=== PATIENT | male | born 1935 | race Caucasian/White ===

== ENCOUNTER → 2016-11-12 19:32 | Outpatient (CLI) | payer OTHER ==
[2016-08-16 07:53] VITALS: BMI 39.7
[~2016-11-12 19:32] MED LIST: BAYER CHEWABLE81 MG PO; BUMEX 1 MG TAB1 MG PO; BUMEX2 MG PO; CALCIUM; CRESTOR20 MG PO; FIBER GUMMIES; GLUCOPHAGE500 MG PO; HYDROCODONE-APA1 TAB PO; IMDUR30 MG PO; KLOR-CON 1010 MEQ PO; LIPITOR40 MG PO; MULTIPLE VITAMI1 TA1 PO; MYSOLINE 50 MG50 MG PO; NEURONTIN600 MG PO; NEXIUM40 MG PO; NITROMIST8.5 GM SL; NORVASC5 MG PO; PHENERGAN25 M1 PO; RANEXA500 MG PO; RELAFEN750 MG PO; SYNTHROID50 MCG PO; ZOLOFT100 MG
== END | disposition home or self-care (01) ==
LOC: D.SLEEP 19:32
DX: G47.33 Obstructive sleep apnea (adult) (pediatric) (principal)

== ENCOUNTER 2017-09-05 07:56 | Day surgery (SDC) | payer MEDICARE, BC, OTHER ==
[~2017-09-05] VITALS: Ht 180.3 cm; Wt 127.0 kg
--- NOTE | ~2017-09-05 | HP ---
PATIENT: AUBREY HAZEL MEDICAL RECORD: [id number] ACCOUNT: [id number] LOCATION:[facility] : 39 ADMISSION DATE: 09/05/17 HISTORY AND PHYSICAL EXAMINATION CHIEF COMPLAINT: Complex colon polyps. HISTORY: The patient has had a history of complex colon polyps. The patient's most worrisome one was within the cecum. It was a large carpeting polyp measuring 3 to 4 cm in size. The biopsies of cecal polyp back in August 2016 revealed an adenomatous polyp as well as a tubular adenoma. I am going to plan for colonoscopy with polypectomy utilizing the argon plasma supervisory cbp officer. The risks, possible complications, and alternatives to the procedure were explained to the patient. He elects to proceed. ALLERGIES: NIACIN. HOME MEDICINES: Please see the anesthesia list. CURRENT MEDICATIONS: Include aspirin, Lipitor, Bumex, Flexeril, Neurontin, metformin, Relafen, nitroglycerin as well as Zoloft. SOCIAL HISTORY: He is an ex-smoker. PAST MEDICAL AND SURGICAL HISTORY: History of myocardial infarction; history of coronary stents times 2; history of coronary artery disease; hypertension; sleep apnea, on CPAP; noninsulin-dependent diabetes mellitus; hypothyroidism, on replacement therapy; osteoarthritis; obesity; gastroesophageal reflux; and hiatal hernia surgery. PHYSICAL EXAMINATION: GENERAL: The patient does not appear acutely ill. He does not appear chronically ill. VITAL SIGNS: Reviewed. EARS: External ears appear normal. He is somewhat hard of hearing. EYES: Extraocular movements are intact. NECK: Trachea is midline. CHEST: No intercostal retractions. PULMONARY: Nonlabored. No stridor. ABDOMEN: Nontender. IMPRESSION: History of complex colon polyps. PLAN: Colonoscopy with polypectomy utilizing the argon plasma supervisory cbp officer. TRANSINT:[id number] Voice Confirmation ID: [id number] DOCUMENT ID: [id number] HISTORY AND PHYSICAL [id number] YASEMINJENISE KATZ MD at 0938 CC: AMY SNIDER MD, VENITA SEVERINO MD and SHELLEY PATEL [id number] DICTATION DATE: 09/05/17 1325 LEAD IOS DEVELOPER: 09/05/17 1347 [facility] [place] 09/05/17 [place] [address]
--- NOTE | ~2017-09-05 | OP ---
PATIENT NAME: AUBREY HAZEL MEDICAL RECORD: [id number] :37 LOCATION:D.OPS ADMISSION DATE: SURGEON: JENISE COUGHLIN MD DATE OF OPERATION: 09/05/2017 PREOPERATIVE DIAGNOSIS: History of complex colon polyps of the cecum. POSTOPERATIVE DIAGNOSES: 1. History of complex colon polyps of the cecum with inadequate prep. 2. Moderate left-sided diverticulosis. 3. A 5-mm sessile polyps ranging from 5 mm to 1.4 cm in greatest dimension. PROCEDURES: 1. Total colonoscopy to cecum. 2. Hot biopsy forceps polypectomies times 5. SURGEON: Jenise Coughlin MD BLUEPRINT BLOCKER: None. BLOOD LOSS: Minimal. ANESTHESIA: General. COMPLICATIONS: None. The risks, possible complications, and alternatives to the procedure were explained to the patient. He elects to proceed. The procedure was performed in the operating room as I felt that the patient was going to require treatment of these polyps with the argon plasma co founder and cto. I noted no regrowth of any polypoid tissue within the cecum; however, there was a poor colonic prep. There was a lot of solid fecal material as well as vegetable material and this was primarily in the cecum and the ascending colon and I could not wash all of it away. The patient was conveyed to the operating room electively on 09/05/2017. General anesthesia was induced by the anesthesia staff. The patient was placed in the Lisa position. A digital rectal examination was performed. A colonoscope was inserted through the anus. It was easily advanced to the cecum. Upon withdrawal, I irrigated and aspirated extensively. I dragged the folds. The pullback was greater than an 18-minute pullback. Five hot biopsy forceps polypectomies were performed. A retroflexed view was obtained in the rectum. I then unretroflexed the scope and removed it under direct vision. I will see the patient in my office in 2-3 weeks. I plan to return his surveillance lower endoscopic care back over to Dr. Meier at that time. TRANSINT:[id number] Voice Confirmation ID: [id number] DOCUMENT ID: [id number] OPERATIVE REPORT [id number] AUBREY HAZEL JENISE COUGHLIN MD at 0938 CC: AMY MEIER MD, VENITA SEVERINO MD and SHELLEY PATEL [id number] DICTATION DATE: 09/05/17 1421 CONVEYOR MONITOR: 09/05/17 1454 [facility] [place] 09/05/17 [place] [id number] [place] [id number]
[2017-09-05] MEDS ORDERED: CYCLOBENZAPRINE10 MG PO (08:33)
[2017-09-05] MEDS ORDERED: RELAFEN500 MG PO (08:35)
[2017-09-05 08:44] VITALS: BP 125/63; Ht 180.3 cm; Wt 127.0 kg
[2017-09-05 09:56] LABS: BASOPHILS 0.1 % (0-2); EOSINOPHILS 1.8 % (0-7); HEMATOCRIT 36.3 % (42.0-54.0); HEMOGLOBIN 11.9 g/dL (13.5-17.5); LYMPHOCYTES 19.7 % (15-50); MCH 29.8 pg (26.0-34.0); MCHC 32.8 g/dL (31.0-37.0); MEAN PLATELET VOLUME 10.4 fL (7.4-10.4); NEUTROPHILS 71.4 % (40-80); PLATELET COUNT 137 10x3/uL (130-400); RBC 3.99 10x6/uL (4.20-6.10); RDW 14.4 % (11.5-14.5); WBC 6.8 10x3/uL (4.8-10.8)
[2017-09-05 10:03] LABS: ANION GAP 13.5 mmol/L (8-16); CALCIUM 8.7 mg/dL (8.5-10.1); CARBON DIOXIDE 28.4 mmol/L (21.0-32.0); CREATININE - SERUM 1.4 mg/dL (0.6-1.3); POTASSIUM - SERUM 3.9 mmol/L (3.5-5.1)
== END 2017-09-05 15:00 | disposition home or self-care (01) ==
LOC: D.OPS 07:56 → D.PAN 09:30 → D.OPS 09:30 → D.PAN 11:20 → D.OPS 11:20 → D.PAN 11:30 → D.OPS 15:00
PROVIDERS: Anesthesiology
DX: K63.5 Polyp of colon (principal); K57.30 Diverticulosis of large intestine without perforation or abscess without bleeding; I25.10 Atherosclerotic heart disease of native coronary artery without angina pectoris; I10 Essential (primary) hypertension; E11.9 Type 2 diabetes mellitus without complications; E03.9 Hypothyroidism, unspecified; G47.30 Sleep apnea, unspecified; K21.9 Gastro-esophageal reflux disease without esophagitis; Z01.812 Encounter for preprocedural laboratory examination

== ENCOUNTER 2017-10-30 06:00 | Day surgery (SDC) | payer MEDICARE, BC, OTHER ==
--- NOTE | ~2017-10-30 | OP ---
PATIENT NAME: AUBREY HAZEL MEDICAL RECORD: [id number] :37 LOCATION:D.[facility] ADMISSION DATE: SURGEON: JENISE COUGHLIN MD DATE OF OPERATION: 10/30/2017 PREOPERATIVE DIAGNOSES: 1. Intractably symptomatic hemorrhoids. 2. Hematochezia. POSTOPERATIVE DIAGNOSES: 1. Intractably symptomatic hemorrhoids. 2. Hematochezia. PROCEDURE: Procedure for prolapse and hemorrhoids. SURGEON: Jenise Coughlin MD FRUIT CHECKER: None. BLOOD LOSS: Minimal. ANESTHESIA: General. COMPLICATIONS: None. I discussed the pathophysiology of hemorrhoids with the patient. We specifically discussed the risks, possible complications, alternatives to a procedure for prolapse and hemorrhoids. We discussed alternate methods of controlling hemorrhoidal issues including hemorrhoidectomy and internal hemorrhoidal banding. The patient elected to proceed with a procedure for prolapse and hemorrhoids. The discussion specifically included, but was not limited to, bleeding, requiring emergency reoperation; infection; anal stenosis; fecal incontinence; and recurrent hemorrhoidal symptoms. OPERATIVE COURSE: The patient was conveyed to the operating room electively on 10/30/2017. General anesthesia was induced by the anesthesia staff. The patient was placed in the lithotomy position. The buttocks were taped laterally. The anus and perianal areas were sterilely prepped and draped. The anus was dilated laterally to 3 fingers. A PPH retractor was placed. The retractor was sutured to the surrounding anoderm with 2-0 silk sutures. A 2-0 Prolene mucosal pursestring suture was applied 1 cm cephalad to the clear retractor. The PPH stapling device was advanced with the anvil cephalad to the pursestring suture, which was then tightened and tied. The stapling device was engaged. It was held in place for 2 minutes. It was then fired. It was removed under direct vision. There was an entire donut of hemorrhoidal and lower rectal mucosal tissue within the stapling device. Bleeding along the anastomotic staple line was controlled with [id number] 3-0 Vicryls. A combination of Marcaine and a steroid preparation was used to infiltrate the perianal tissues. Gelfoam was applied within anus and lower rectum. A topical anesthetic cream was applied to the external hemorrhoids. The patient was then extubated and conveyed to postanesthesia care unit. TRANSINT:[id number] Voice Confirmation ID: [id number] DOCUMENT ID: [id number] OPERATIVE REPORT [id number] AUBREY HAZEL ROBERT MD at 1019 CC: VENITA SEVERINO and SHELLEY PATEL MD [id number] DICTATION DATE: 10/30/17 0937 WIRE BORDER ASSEMBLER: 10/30/17 1318 [facility] [place] 10/30/17 [place] [id number]
[~2017-10-30 06:00] MED LIST changes: +CYCLOBENZAPRINE10 MG PO; +RELAFEN500 MG PO
[2017-10-30 06:45] LABS: BASOPHILS 0.2 % (0-2); EOSINOPHILS 2.6 % (0-7); HEMATOCRIT 39.9 % (42.0-54.0); HEMOGLOBIN 13.2 g/dL (13.5-17.5); IMMATURE GRANULOCYTES 0.2 % (0-5); MCH 31.1 pg (26.0-34.0); MCHC 33.1 g/dL (31.0-37.0); MCV 94.1 fL (80.0-100.0); MEAN PLATELET VOLUME 9.8 fL (7.4-10.4); MONOCYTES 8.5 % (2-11); NEUTROPHILS 61.5 % (40-80); PLATELET COUNT 132 10x3/uL (130-400); RBC 4.24 10x6/uL (4.20-6.10); RDW 14.6 % (11.5-14.5); WBC 6.3 10x3/uL (4.8-10.8)
[2017-10-30 07:07] LABS: CALCIUM 8.7 mg/dL (8.5-10.1); CARBON DIOXIDE 27.8 mmol/L (21.0-32.0); CREATININE - SERUM 1.5 mg/dL (0.6-1.3); POTASSIUM - SERUM 3.8 mmol/L (3.5-5.1)
[2017-10-30] MEDS ORDERED: LEVO-T50 MCG PO (07:25)
[2017-10-30] MEDS ORDERED: TOPAMAX25 MG PO (07:26)
[2017-10-30 07:33] VITALS: BP 132/65; BMI 37.7
== END 2017-10-30 11:35 | disposition home or self-care (01) ==
LOC: D.OPS 06:00 → D.PAN 07:30 → D.OPS 07:30 → D.PAN 08:00 → D.OPS 11:35
PROVIDERS: Anesthesiology
DX: K64.8 Other hemorrhoids (principal); K92.1 Melena; K64.4 Residual hemorrhoidal skin tags; Z01.812 Encounter for preprocedural laboratory examination

== ENCOUNTER → 2017-11-22 12:56 | Outpatient (CLI) | payer MEDICARE, BC, OTHER ==
[2017-10-30 07:33] VITALS: BMI 37.7
[~2017-11-22 12:56] MED LIST changes: +LEVO-T50 MCG PO; +TOPAMAX25 MG PO
== END | disposition home or self-care (01) ==
LOC: D.MRI 12:56
DX: M48.03 Spinal stenosis, cervicothoracic region (principal)

== ENCOUNTER → 2017-11-26 07:36 | Outpatient (CLI) | payer MEDICARE, BC, OTHER ==
[2017-10-30 07:33] VITALS: BMI 37.7
== END | disposition home or self-care (01) ==
LOC: D.NM 07:36
DX: M48.07 Spinal stenosis, lumbosacral region (principal)

== ENCOUNTER → 2018-11-18 08:36 | Outpatient (CLI) | payer MEDICARE, BC, OTHER ==
--- NOTE | 2018-11-20 14:40 | EC ---
PATIENT:AUBREY HAZEL DATE OF SERVICE: 11/18/18 SEX: M MEDICAL RECORD: [id number] DATE OF : 39 [facility] AGE OF PATIENT: 83 ADMISSION DATE: 11/18/18 REFERRING PHYSICIAN: INTERPRETING PHYSICIAN: SHELLEY PATEL MD ECHOCARDIOGRAM REPORT ECHO CHARGES 4 ECHO COMPLETE Date: 11/18/18 CLINICAL DIAGNOSIS: CAD ECHOCARDIOGRAPHIC MEASUREMENTS (adult normal given) AC root (d.<3.7cm) 4.2 cm LV Septum d (<1.2 cm> 1.6 cm Valve Excursion 2.2 cm LV Septum (systole) 1.7 cm Left Atria (s.<4.0cm> 5.0 cm LVPW d(<1.2cm) 1.8 cm RV (d.<2.3cm) 3.7 cm LVPW (sytole) 2.0 cm LV diastole(<5.6CM) 6.2 cm MV E-F(>70mm/sec) cm LV systole 4.2 cm LVOT Diameter 2.1 cm MV exc.(>10mm) cm Est.ejection fraction (50-75%) % DOPPLER: LVIT cm/sec A 79.0 cm/sec E 70.0 cm/sec LA cm/sec RVSP 27 mmHg LVOT 98 cm/sec AOP1/2T m/s Asc. Ao 124 cm/sec RVOT 83 cm/sec RA cm/sec PA 105 cm/sec AV Gradient Peak 6.14 mmHg AV Mean 3.06 mmHg AV Area 3.0 cm MV Gradient Peak 2.95 mmHg MV Mean 0.98 mmHg MV Area cm COMMENTS: Cook House Supervisor: 2 SAMANTHA DOMINGUEZ Mineral Industry Teacher: 3 Dr. Sebastian TAPE# PACS Pericardial Effusion N DATE OF SERVICE: Adequate 2-D echo, color flow and spectral Doppler, and M-mode. LVH is present. LV internal dimension is normal. Wall motion is normal. EF is greater than or equal to 55%. Aortic valve sclerosis without stenosis by Doppler interrogation. Left atrium is dilated at 5.0 cm. Mitral valve is thickened with no prolapse. Trace MR. Right-sided chamber is grossly normal. Trace TR. ECHOCARDIOGRAM REPORT [id number] AUBREY HAZEL TRANSINT:[id number] Voice Confirmation ID: [id number] DOCUMENT ID: [id number] SHELLEY PATEL MD at 1440 CC: [id number] DICTATION DATE: 11/19/18 0859 BUNDLE CUTTER: 11/19/18 0909 DEP CLI 11/18/18 [facility] [address] [place] [address]
== END | disposition home or self-care (01) ==
LOC: D.HCCARDIO 08:36
PROVIDERS: ATTEND Internal Medicine Interventional Cardiology
DX: I25.10 Atherosclerotic heart disease of native coronary artery without angina pectoris (principal)

== ENCOUNTER 2020-02-24 09:31 | Day surgery (SDC) | payer MEDICARE, BC, OTHER ==
[~2020-02-24] VITALS: Ht 180.3 cm; Wt 132.7 kg
[2020-02-24 10:11] LABS: BASOPHILS 0.3 % (0-2); EOSINOPHILS 2.8 % (0-7); HEMATOCRIT 40.5 % (42.0-54.0); HEMOGLOBIN 13.1 g/dL (13.5-17.5); LYMPHOCYTES 24.4 % (15-50); MCH 30.5 pg (26.0-34.0); MCHC 32.3 g/dL (31.0-37.0); MCV 94.2 fL (80.0-100.0); MEAN PLATELET VOLUME 10.2 fL (7.4-10.4); MONOCYTES 7.5 % (2-11); PLATELET COUNT 136 10x3/uL (130-400); RDW 13.5 % (11.5-14.5); WBC 6.7 10x3/uL (4.8-10.8)
[2020-02-24 10:28] LABS: ANION GAP 9.4 mmol/L (8-16); CALCIUM 8.4 mg/dL (8.5-10.1); CARBON DIOXIDE 34.4 mmol/L (21.0-32.0); CREATININE - SERUM 1.6 mg/dL (0.6-1.3); POTASSIUM - SERUM 3.8 mmol/L (3.5-5.1)
[2020-02-24 10:45] VITALS: Ht 180.3 cm; Wt 132.7 kg
--- NOTE | 2020-02-24 13:55 | NUR ---
1354 PORTABLE CHEST XRAY TO RULE OUT FREE AIR COMPLETED. ABDOMEN SOFT & DISTENDED. BOWEL SOUNDS AUSCULTATED IN ALL 4 QUADRANTS. PT ENCOURAGED TO PASS FLATUS. PT NPO. Sammy HSU R.N.
--- NOTE | 2020-02-24 14:26 | NUR ---
1420 CHEST X-RAY REPORT SHOWS NO FREE AIR. PT SERVED WATER. Sammy HSU R.N.
--- NOTE | 2020-02-24 14:42 | NUR ---
1440 UP TO BATHROOM. AMBULATORY WITHOUT DIFFICULTY. VOIDED. BACK TO BED. IV DC'ED WITH CATH INTACT. DRESSING. Sammy HSU R.N.
--- NOTE | 2020-02-24 15:05 | NUR ---
1450 UP DRESSED. AWAKE & ALERT. DRANK & RETAINED APPLE JUICE. GIVEN DISCHARGE INFORMATION INCLUDING: MED REC, SHEET LISTING NSAIDS TO AVOID, RTC APPT., & POST ENDOSCOPIC PROCEDURES D/C INSTRUCTION SHEET OPS. PT VOICED UNDERSTANDING. TO PRIVATE CAR PER WHEELCHAIR. HOME WITH , PEARL. CoelhoAntione ZHOUER Amador
--- NOTE | 2020-02-24 18:29 | HP ---
PATIENT: AUBREY HAZEL MEDICAL RECORD: [id number] ACCOUNT: [id number] LOCATION:[facility] : 39 ADMISSION DATE: 02/24/20 PCP: VENITA SEVERINO MD HISTORY AND PHYSICAL EXAMINATION CHIEF COMPLAINT: History of complex colon polyps. HISTORY OF PRESENT ILLNESS: The patient has history of complex colon polyps. The most worrisome one was within the cecum. This has been a large carpeting polyp measuring 3-4 cm in size. Biopsies in the past have revealed an adenomatous polyp as well as a tubular adenoma. CURRENT MEDICATIONS: Please see the nursing list. SOCIAL HISTORY: He is an ex-smoker. PAST MEDICAL AND SURGICAL HISTORY: Myocardial infarction; coronary stents; coronary artery disease; hypertension; sleep apnea, on CPAP; noninsulin-dependent diabetes mellitus; hypothyroidism, on replacement therapy; osteoarthritis; obesity; gastroesophageal reflux and a hiatal hernia surgery. PHYSICAL EXAMINATION: GENERAL: The patient does not appear acutely ill. He does appear chronically ill. VITAL SIGNS: Reviewed. EARS: External ears appear normal. He is somewhat hard of hearing. EYES: Extraocular movements are intact. NECK: Trachea is midline. CHEST: No intercostal retractions. PULMONARY: Mildly labored. No stridor. IMPRESSION: History of complex colon polyps. PLAN: Colonoscopy with possible polypectomies. TRANSINT:[id number] Voice Confirmation ID: [id number] DOCUMENT ID: [id number] JENISE COUGHLIN MD at 1829 CC: VENITA SEVERINO [id number] DICTATION DATE: 02/24/20 1239 EDUCATION AND TRAINING MANAGER: 02/24/20 1558 [facility] 02/24/20 [facility] [address] [place] [address]
--- NOTE | 2020-02-25 12:27 | OP ---
PATIENT NAME: AUBREY HAZEL MEDICAL RECORD: [id number] :39 LOCATION:D.[facility] ADMISSION DATE: SURGEON: SANKET COUGHLIN MD DATE OF OPERATION: 02/24/2020 PREOPERATIVE DIAGNOSIS: History of complex colon polyps including a complex cecal polyp. POSTOPERATIVE DIAGNOSES: 1. History of complex colon polyps including a complex cecal polyp with 1 new cecal polyp, which was a 6 mm sessile polyp. 2. Inadequate prep essentially an unprepped colon. I can only exclude obstructing colonic masses. OPERATIVE PROCEDURES: 1. Total colonoscopy to cecum. 2. Hot biopsy forceps polypectomy times 1. SURGEON: Sanket Coughlin MD CULLET CRUSHER AND WASHER: None. BLOOD LOSS: Minimal. ANESTHESIA: IV sedation. COMPLICATIONS: None. ENDOSCOPIC COURSE: A consent form was signed. The patient was conveyed to the endoscopy suite electively on 02/24/2020. IV sedation was induced by the anesthesia staff. The patient was placed in the Lisa position. A digital rectal examination was performed. A colonoscope was inserted through the anus. It was advanced with difficulty to the cecum. I irrigated and aspirated extensively. One small polyp was noted and was removed utilizing the hot biopsy forceps polypectomy technique. I then slowly withdrew the endoscope. I irrigated and aspirated extensively. The prep was inadequate. The endoscope was then withdrawn under direct vision. Due to the inadequate prep, I am going to recommend a 2-day prep and that we perform another colonoscopy on this patient in 1 year. TRANSINT:[id number] Voice Confirmation ID: [id number] DOCUMENT ID: [id number] SANKET COUGHLIN MD at 1227 CC: VENITA SEVERINO [id number] DICTATION DATE: 02/24/20 1329 STONECUTTER HAND: 02/24/20 1941 [facility] 02/24/20 [place] [address]
== END 2020-02-24 14:55 | disposition home or self-care (01) ==
LOC: D.OPS 09:31
PROVIDERS: ATTEND Surgery
DX: Z86.010 Personal history of colon polyps (principal); K63.5 Polyp of colon; I25.2 Old myocardial infarction; I10 Essential (primary) hypertension; E11.9 Type 2 diabetes mellitus without complications; E03.9 Hypothyroidism, unspecified; K21.9 Gastro-esophageal reflux disease without esophagitis

== ENCOUNTER → 2020-04-06 05:27 | Day surgery (SDC) | payer MEDICARE, BC, OTHER ==
[2020-02-24 10:45] VITALS: BMI 40.8
[2020-04-06 06:19] LABS: BASOPHILS 0.2 % (0-2); HEMATOCRIT 38.4 % (42.0-54.0); HEMOGLOBIN 12.6 g/dL (13.5-17.5); IMMATURE GRANULOCYTES 0.2 % (0-5); LYMPHOCYTES 29.5 % (15-50); MCH 30.7 pg (26.0-34.0); MCHC 32.8 g/dL (31.0-37.0); MCV 93.7 fL (80.0-100.0); NEUTROPHILS 58.1 % (40-80); PLATELET COUNT 133 10x3/uL (130-400); RDW 13.7 % (11.5-14.5); WBC 6.7 10x3/uL (4.8-10.8)
[2020-04-06 06:35] LABS: ANION GAP 10.8 mmol/L (8-16); CALCIUM 8.6 mg/dL (8.5-10.1); CARBON DIOXIDE 29.4 mmol/L (21.0-32.0); CREATININE - SERUM 1.6 mg/dL (0.6-1.3); POTASSIUM - SERUM 3.2 mmol/L (3.5-5.1)
== END | disposition home or self-care (01) ==
LOC: D.OPS 05:27
PROVIDERS: Anesthesiology; ATTEND Surgery
DX: K21.9 Gastro-esophageal reflux disease without esophagitis (principal); Z53.9 Procedure and treatment not carried out, unspecified reason; I10 Essential (primary) hypertension; E66.01 Morbid (severe) obesity due to excess calories; G47.33 Obstructive sleep apnea (adult) (pediatric); E78.00 Pure hypercholesterolemia, unspecified; E11.9 Type 2 diabetes mellitus without complications; Z79.84 Long term (current) use of oral hypoglycemic drugs